=== PATIENT | male | born 1930 | race Caucasian/White ===

== ENCOUNTER 2016-11-06 05:32 | Day surgery (SDC) | payer MEDICARE, BC ==
[~2016-11-06] VITALS: Ht 182.9 cm; Wt 93.2 kg
[~2016-11-06 05:32] MED LIST: ALEVE220 M1 PO; ALTACE DPS10 MG PO; ASA325 MG PO; DELTASONE DPS20 MG PO; DUONEB DPS3 ML IH; ESBRIET267 MG PO; LEVAQUIN DPS500 MG PO; LOPRESSOR DPS50 MG PO; MAXI VISION PO; NITROGLYCERIN0.4 MG SL; TYLENOL DPS325 MG PO; VITAMIN E400 UNIT PO; ZETIA10 MG PO
--- NOTE | 2016-11-09 07:24 | OR ---
ADMIT: 11/06/2016 RM/LOC: [facility] MR#: [id number] [id number] [address] [place] [address] Operative/Delivery Room Report SEX: M AGE: 86 : 1930 SURGERY DATE: 11/06/2016 SURGEON: William Contreras MD PREOPERATIVE DIAGNOSIS: Myelodysplastic syndrome. POSTOPERATIVE DIAGNOSIS: Myelodysplastic syndrome. PROCEDURE: Right internal jugular vein PowerPort insertion under ultrasound and fluoroscopic guidance. ANESTHESIA: IV general. DESCRIPTION OF PROCEDURE: The patient was taken to the operating room and placed supine on the operating room table. IV sedation was established. The right neck and chest were prepped and draped in the standard surgical fashion. Local anesthetic was used to anesthetize the skin and subcutaneous tissue of the right neck and chest wall inferior to the right clavicle. The right internal jugular vein was identified with ultrasound and cannulated under ultrasound guidance with a large gauge needle. A guidewire was advanced to the superior vena cava and the right atrium. Next, a port pocket was created in the subcutaneous space inferior to the right clavicle to allow snug positioning of the PowerPort. The catheter was tunneled from the port pocket to the needle insertion site and cut the appropriate length. The catheter was secured to the port with a cuff. The port was sutured on both sides through the subcutaneous tissue with 3-0 Prolene suture. Next, the dilator and sheath were advanced over the guidewire, and the guidewire and dilator were withdrawn. The catheter was deployed via the sheath and the sheath was removed. Fluoroscopy showed appropriate position of the catheter with the tip at the atrial caval junction and no evidence of kink. The port was accessed with a Bejarano needle, aspirated easily, and flushed with heparinized saline. The deep tissue at the port pocket was approximated with 3-0 Vicryl suture. Skin edges were approximated with 4-0 Monocryl in a subcuticular fashion and Dermabond. A dressing was placed also. Sponge, needle, and instrument counts were correct at the end of the case. The patient tolerated the procedure well and transferred to the recovery area in stable condition. William Contreras MD/ mark JOB #: [id number] CC: William Contreras MD, Attending Physician Demarco Bhatt MD, Family Physician
== END 2016-11-06 09:45 | disposition home or self-care (01) ==
LOC: SSS 05:32
PROC: B513YZA Fluoroscopy of Right Jugular Veins using Other Contrast, Guidance (ICD-10-PCS; principal; 2016-11-06)
PROC: 05HM33Z Insertion of Infusion Device into Right Internal Jugular Vein, Percutaneous Approach (ICD-10-PCS; principal; 2016-11-06)
PROC: B543ZZA Ultrasonography of Right Jugular Veins, Guidance (ICD-10-PCS; principal; 2016-11-06)
DX: D46.9 Myelodysplastic syndrome, unspecified (principal); I25.10 Atherosclerotic heart disease of native coronary artery without angina pectoris; I10 Essential (primary) hypertension; I82.90 Acute embolism and thrombosis of unspecified vein; Z88.2 Allergy status to sulfonamides; Z98.49 Cataract extraction status, unspecified eye